=== PATIENT | female | born 1955 | race Caucasian/White ===

== ENCOUNTER 2023-12-18 08:08 | Outpatient (CLI) | payer MEDICARE ==
[2023-12-18] MEDS ORDERED: Iopamidol 370 76% 100 ML VIAL ONE (10:48)
== END 2023-12-18 08:09 | disposition home or self-care (01) ==
LOC: CT 08:08
PROVIDERS: ATTEND Internal Medicine Rheumatology
DX: R05.9 Cough, unspecified (principal); R93.89 Abnormal findings on diagnostic imaging of other specified body structures; K76.0 Fatty (change of) liver, not elsewhere classified; Z90.49 Acquired absence of other specified parts of digestive tract; Z87.09 Personal history of other diseases of the respiratory system
CPT/HCPCS: 36415; 71260; 82565; Q9967